=== PATIENT | female | born 1940 | race Caucasian/White ===

== ENCOUNTER 2017-01-06 09:07 | Day surgery (SDC) | payer MEDICARE ==
[2017-01-06] MEDS ORDERED: IV START KIT ONE (09:22)
[2017-01-06] MEDS ORDERED: LACTATED RINGERS 1,000 ML ONE (09:22)
[2017-01-06] MEDS ORDERED: LIDOCAINE Viscous 2% 15 ML UDCUP ONE (10:05)
[2017-01-06] MEDS ORDERED: LACTATED RINGERS 1,000 ML IV SCH (11:30)
[2017-01-06] MEDS ORDERED: ALBUTEROL NEB 2.5 MG/3 ML VIAL.NEB NEB ONE ×2 (11:49→11:55)
[2017-01-06 15:55] LABS: HELICOBACTER PYLORII DETECTION NEGATIVE (NEGATIVE)
--- NOTE | 2017-01-08 10:58 | SURGPATH ---
[facility] [address] [place] [id number] Patient Name: GAY DU MR#: [id number] : 1940 Gender: F Specimen #: [id number] Collected: 01/06/2017 Received: 01/07/2017 Reported: 01/08/2017 Submitting Phys: LAUREN ROY Copy To Phys: EUGENE DUQUE [facility] Clinical History / Pre-Operative Diagnosis: DIVERTICULOSIS; HEME POSITIVE STOOL Specimen Source / Surgical Procedure Performed: #1-DUODENUM; #2-ANTRAL BIOPSY; #3-SIGMOID COLON POLYP Interpretation: 1. DUODENUM, BIOPSY: - NO PATHOLOGIC ABNORMALITY 2. GASTRIC ANTRUM, BIOPSY: - REACTIVE GASTROPATHY 3. SIGMOID COLON POLYP, BIOPSY: - TUBULAR ADENOMA Electronically Signed Out Alejandro Berrios M.D. Gross Description: #1 The specimen is received in a formalin filled container labeled with the patient's name and "duodenal biopsy". Two fields biopsies are each 0.3 cm. Totally embedded in cassette #1. #2 The specimen is received in a formalin filled container labeled with the patient's name and "antral biopsy". Two banks-fields biopsies are 0.4 and 0.5 cm. Totally embedded in cassette #2. #3 The specimen is received in a formalin filled container labeled with the patient's name and "sigmoid colon polyp". A polypoid fields biopsy is 0.6 x 0.5 x 0.5 cm. Bisected. Totally embedded in cassette #3. Ugo Antonio PWinter Microscopic Description: Microscopic performed. 1: 55773 2: 81054 3: 50260 D12.5
== END 2017-01-06 12:25 | disposition home or self-care (01) ==
LOC: SDC 09:07
PROVIDERS: ATTEND Surgery
PROC: 0DBN8ZX Excision of Sigmoid Colon, Via Natural or Artificial Opening Endoscopic, Diagnostic (ICD-10-PCS; principal; 2017-01-06)
PROC: 0DB98ZX Excision of Duodenum, Via Natural or Artificial Opening Endoscopic, Diagnostic (ICD-10-PCS; 2017-01-06)
PROC: 0DB68ZX Excision of Stomach, Via Natural or Artificial Opening Endoscopic, Diagnostic (ICD-10-PCS; 2017-01-06)
DX: R19.5 Other fecal abnormalities (principal); D12.5 Benign neoplasm of sigmoid colon; K57.30 Diverticulosis of large intestine without perforation or abscess without bleeding; K29.50 Unspecified chronic gastritis without bleeding; K29.80 Duodenitis without bleeding; I10 Essential (primary) hypertension; Z79.82 Long term (current) use of aspirin
CPT/HCPCS: 45385; 87081; 43239; A9270; J7120